=== PATIENT | male | born 1995 | race Caucasian/White ===

== ENCOUNTER 2023-06-22 12:30 | Emergency (ER) | payer MEDICARE, MEDICAID, SELFPAY ==
[2023-06-22 12:32] VITALS: BP 147/95; PULSE 101; RESP 16; TEMP 36.8; O2SAT 100; BMI 24.4
--- NOTE | 2023-06-22 12:53 | XR_ITS ---
The [address] [address] Patient Name: ADDY ROBERTSON MRN: [id number] date: 1995 Sex: M Assigned Patient Location: ER Current Patient Location: ER Accession/Order Number: [id number] Exam Date: 06/22/2023 12:57 Report Date: 06/22/2023 13:29 At the request of: NEEL ROMEO Procedure: XR lumbar spine 2-3V EXAM: XR lumbar spine 2-3V HISTORY: fell on ice three days ago COMPARISON: None TECHNIQUE: AP and lateral views of the lumbar spine were obtained. FINDINGS: Vertebral body heights are grossly well-maintained. No significant disc space narrowing. Facet joints appear grossly unremarkable. No obvious spondylolysis or spondylolisthesis. No definite acute fracture or dislocation. Postoperative clips are noted. XR/XR lumbar spine 2-3V IMPRESSION: Lumbar spine study fails to demonstrate definite acute fracture or dislocation. Follow-up as needed. Electronically authenticated by: KARLENE NOLASCO Date: 06/22/2023 13:29
--- NOTE | 2023-06-22 12:53 | ED.BACK1 ---
HPI - Back Pain/Injury General Chief Complaint: Back Pain/Injury Stated Complaint: BACK PAIN Time Seen by Provider: 06/22/23 12:48 Source: patient Mode of arrival: Wheelchair History of Present Illness HPI Narrative: 28-year-old male presents for lower back pain. It's across his lower back and it started three days ago when he slipped on ice and fell and landed on his lower back. It goes into his legs. He didn't hit his head. He is in pain management. The pain is moderate to severe and worse in certain positions. Related Data Home Medications Medication Instructions Recorded Confirmed aripiprazole 20 mg tablet (Abilify) 20 mg PO DAILY 06/22/23 06/22/23 desipramine 100 mg tablet 100 mg PO DAILY 06/22/23 06/22/23 desipramine 50 mg tablet 50 mg PO BEDTIME 06/22/23 06/22/23 lithium carbonate 600 mg capsule 600 mg PO TID 06/22/23 06/22/23 lorazepam 1 mg tablet (Ativan) 1 mg PO BID 06/22/23 06/22/23 zolpidem 10 mg tablet (Ambien) 10 mg PO BEDTIME 06/22/23 06/22/23 Previous Rx's Medication Instructions Recorded etodolac 400 mg tablet (Lodine) 400 mg PO Q12H PRN pain #20 tabs 06/22/23 methocarbamol 750 mg tablet 750 mg PO Q6H PRN pain #20 tabs 06/22/23 Allergies Allergy/AdvReac Type Severity Reaction Status Date / Time trazodone AdvReac Mild Verified 06/22/23 12:38 SSRI AdvReac Mild Uncoded 06/22/23 12:38 Review of Systems ROS Narrative A ten point review of systems is negative except as noted above. PFSH PFSH Social History Smoking status: Current every day smoker Exam Narrative Exam Narrative: Nurses note and vital signs reviewed and patient is not hypoxic. General: The patient appears well and in no apparent distress. Patient is resting comfortably on cart. Skin: Warm, dry, no pallor noted. There is no rash noted. Head: Normocephalic, atraumatic Eye: Normal conjunctiva, no drainage Ears, Nose, Mouth, and Throat: oral mucosa is moist. Nares patent. Cardiovascular: Regular Rate and Rhythm Respiratory: Patient is in no distress, no accessory muscle use, lungs are clear to auscultation, no wheezing, rales or rhonchi Back: no bruise or abrasion GI: Normal bowel sounds, no tenderness to palpation, no masses appreciated. No rebound, guarding, or rigidity noted. Musculoskeletal: cervical and thoracic spines are nontender. He has diffuse tenderness across his lower back without bruise or abrasion. Motor strength intact in his lower extremities. Neurological: A&O normal speech Psychiatric: Cooperative Constitutional Vital Signs, click to edit/add: Last Vital Signs Temp 98.3 F 06/22/23 12:32 Pulse 101 H 06/22/23 12:32 Resp 16 06/22/23 12:32 BP 147/95 H 06/22/23 12:32 Pulse Ox 100 06/22/23 12:32 O2 Del Method Room Air 06/22/23 12:32 Course Vital Signs Vital signs: Vital Signs Temperature 98.3 F 06/22/23 12:32 Pulse Rate 101 H 06/22/23 12:32 Respiratory Rate 16 06/22/23 12:32 Blood Pressure 147/95 H 06/22/23 12:32 Pulse Oximetry 100 06/22/23 12:32 Oxygen Delivery Method Room Air 06/22/23 12:32 Temperature 98.3 F 06/22/23 12:32 Pulse Rate 101 H 06/22/23 12:32 Respiratory Rate 16 06/22/23 12:32 Blood Pressure 147/95 H 06/22/23 12:32 Pulse Oximetry 100 06/22/23 12:32 Oxygen Delivery Method Room Air 06/22/23 12:32 MDM - Back Pain/Injury MDM Narrative Medical decision making narrative: X-ray showed no acute findings and he is being treated symptomatically. Treatment diagnosis and follow-up were discussed with the patient. Differential Diagnosis Differential diagnosis: Likely other (lumbar contusion, lumbar fracture) Imaging Data lumbar x-rays: Radiologist's impression: ITS Impressions Lumbar Spine X-Ray 06/22/23 12:53 IMPRESSION: Lumbar spine study fails to demonstrate definite acute fracture or dislocation. Follow-up as needed. Electronically authenticated by: KARLENE NOLASCO Date: 06/22/2023 13:29 Discharge Plan Discharge Chief Complaint: Back Pain/Injury Clinical Impression: Lumbar contusion Patient Disposition: Home, Self-Care Time of Disposition Decision: 13:41 Condition: Good Mode of Transportation: Private Vehicle Prescriptions / Home Meds: New etodolac [Lodine] 400 mg tablet 400 mg PO Q12H PRN (Reason: pain) Qty: 20 0RF methocarbamol 750 mg tablet 750 mg PO Q6H PRN (Reason: pain) Qty: 20 0RF No Action lithium carbonate 600 mg capsule 600 mg PO TID desipramine 50 mg tablet 50 mg PO BEDTIME desipramine 100 mg tablet 100 mg PO DAILY lorazepam [Ativan] 1 mg tablet 1 mg PO BID zolpidem [Ambien] 10 mg tablet 10 mg PO BEDTIME aripiprazole [Abilify] 20 mg tablet 20 mg PO DAILY Instructions: Contusion in Adults (ED) Stand Alone Forms: Portal Instructions Referrals: Physician,Non-Staff, MD [Primary Care Provider] - 1 week
[2023-06-22] MEDS: KETOROLAC TROMETHAMINE 60 MG/2 ML VIAL IM (13:46)
[2023-06-22] MEDS: ORPHENADRINE 60 MG/ 2 ML VIAL IM (13:46)
== END 2023-06-22 13:57 | disposition home or self-care (01) ==
PROVIDERS: Emergency Provider Emergency Medicine
DX: S30.0XXA Contusion of lower back and pelvis, initial encounter (principal); W00.0XXA Fall on same level due to ice and snow, initial encounter; Z79.899 Other long term (current) drug therapy; F17.210 Nicotine dependence, cigarettes, uncomplicated
CPT/HCPCS: 72100; 96372; 99284; J1885; J2360